=== PATIENT | female | born 1995 | race Two or more races ===

== ENCOUNTER 2020-02-15 15:25 | Emergency (ER) | payer OTHER ==
[~2020-02-15] VITALS: Ht 162.6 cm; Wt 108.9 kg
[2020-02-15 15:37] VITALS: BP 162/78
[2020-02-15] MEDS ORDERED: DIAZEPAM 5 MG TAB PO ONE (16:00)
[2020-02-15] MEDS ORDERED: KETOROLAC 30 MG/ML VIAL IM ONE (16:00)
[2020-02-15 16:51] LABS: BASOPHILS # (AUTO) 0.1 K/uL (0.00-0.22); BASOPHILS % (AUTO) 0.4 % (0.0-2.0); EOSINOPHILS # (AUTO) 0.2 K/uL (0-0.4); EOSINOPHILS % (AUTO) 1.9 % (0.0-4.0); LYMPHOCYTES # (AUTO) 1.8 K/uL (2.5-16.5); LYMPHOCYTES % (AUTO) 15.4 % (20.5-51.1); MEAN CORPUSCULAR HEMOGLOBIN 18 pg (27-31); MEAN CORPUSCULAR HGB CONC 30 g/dL (33-37); MEAN CORPUSCULAR VOLUME 59.3 fL (80-94); MONOCYTES # (AUTO) 0.9 K/uL (0.8-1.0); MONOCYTES % (AUTO) 7.4 % (1.7-9.3); NEUTROPHILS # (AUTO) 8.7 K/uL (1.8-7.7); NEUTROPHILS % (AUTO) 74.9 % (42.2-75.2); PLATELET COUNT (AUTO) 517 K/uL (140-450); RED BLOOD CELL COUNT(AUTO) 4.55 MIL/uL (4.20-5.40); RED CELL DISTRIBUTION WIDTH 20.3 % (11.6-13.7); WHITE BLOOD COUNT (AUTO) 11.7 K/uL (4.8-10.8)
[2020-02-15 17:11] LABS: ALBUMIN 3.3 g/dL (3.4-5.0); ANION GAP 13.5 (8-16); CARBON DIOXIDE 26.5 mmol/L (21-32); CREATININE 1.1 mg/dL (0.6-1.3); TOTAL BILIRUBIN 0.2 mg/dL (0.0-1.0)
[2020-02-15 17:47] LABS: APPEARANCE,URINE CLOUDY (CLEAR); BILIRUBIN,URINE 1+ (NEGATIVE); BLOOD, URINE 2+ (NEGATIVE); COLOR,URINE ORANGE (YELLOW); LEUKOCYTE ESTERASE ,URINE NEGATIVE (NEGATIVE); NITRITE, URINE POSITIVE (NEGATIVE); UGLUCOSE NEGATIVE (NEGATIVE)
[2020-02-15 17:59] LABS: RBC,URINE NONE SEEN /HPF (0-5); URINE AMORPHOUS URATE 4+ /HPF (None Seen); WBC,URINE NONE SEEN /HPF (0-5)
[2020-02-15] MEDS ORDERED: MORPHINE SULFATE 4 MG/ML SYR IM ONE (18:15)
[2020-02-15 18:47] VITALS: BP 157/71
== END 2020-02-15 18:47 | disposition home or self-care (01) ==
LOC: MED 15:25
DX: N20.0 Calculus of kidney (principal); D64.89 Other specified anemias
CPT/HCPCS: 36415; 74176; 76770; 80053; 81001; 81025; 85025; 96374; 96375; 99284; J1885; J2270; Q0092

== ENCOUNTER 2020-03-14 17:34 | Emergency (ER) | payer OTHER ==
[~2020-03-14] VITALS: Ht 162.6 cm; Wt 108.9 kg
[2020-03-14 17:43] VITALS: BP 153/89
--- NOTE | 2020-03-14 17:59 | NUR ---
24 Y/O FEMALE FROM HOME C/O LOWER ABD PAIN RADIATING TO BACK WITH INTERMITTENT VAGINAL BLEEDING X 2 WKS. PT STATES SHE STARTED NEW CONTROL 1.5 MONTHS AGO. STATES DYSURIA AND VAGINAL DISCHARGE. DENIES N/V/D. ABD SOFT, ROUND, AND TENDER TO PALP. RR EVEN AND UNLABORED. POSITIONED FOR COMFORT. VSS MEDHX: BRAIN TUMOR
--- NOTE | 2020-03-14 18:00 | NUR ---
COSME RAMOS AT BEDSIDE EXAMINING PT
--- NOTE | 2020-03-14 18:16 | NUR ---
20G IV PLACED TO PT RT FOREARM, BLOOD DRAWN AT THIS TIME
[2020-03-14 18:18] LABS: BASOPHILS # (AUTO) 0.1 K/uL (0.00-0.22); BASOPHILS % (AUTO) 0.8 % (0.0-2.0); EOSINOPHILS # (AUTO) 0.3 K/uL (0-0.4); EOSINOPHILS % (AUTO) 2.3 % (0.0-4.0); HEMATOCRIT 31.1 % (36-48); HEMOGLOBIN 9.1 g/dL (12.0-16.0); LYMPHOCYTES # (AUTO) 2.6 K/uL (2.5-16.5); LYMPHOCYTES % (AUTO) 19.5 % (20.5-51.1); MEAN CORPUSCULAR HEMOGLOBIN 18 pg (27-31); MEAN CORPUSCULAR HGB CONC 29 g/dL (33-37); MEAN CORPUSCULAR VOLUME 59.8 fL (80-94); MONOCYTES # (AUTO) 0.8 K/uL (0.8-1.0); MONOCYTES % (AUTO) 5.8 % (1.7-9.3); NEUTROPHILS # (AUTO) 9.5 K/uL (1.8-7.7); NEUTROPHILS % (AUTO) 71.6 % (42.2-75.2); PLATELET COUNT (AUTO) 579 K/uL (140-450); RED CELL DISTRIBUTION WIDTH 20.6 % (11.6-13.7); WHITE BLOOD COUNT (AUTO) 13.2 K/uL (4.8-10.8)
[2020-03-14 18:42] LABS: ALBUMIN 3.5 g/dL (3.4-5.0); ANION GAP 14.4 (8-16); CARBON DIOXIDE 25.2 mmol/L (21-32); CREATININE 0.8 mg/dL (0.6-1.3); POTASSIUM 3.6 mmol/L (3.5-5.1); TOTAL BILIRUBIN 0.2 mg/dL (0.0-1.0)
[2020-03-14] MEDS: KETOROLAC 15 MG/ML VIAL IVP SCH (19:00)
--- NOTE | 2020-03-14 19:11 | NUR ---
REPORT GIVEN TO CARYN LIN. TRANSFER OF CARE AT THIS TIME
[2020-03-14] MEDS: KETOROLAC 30 MG/ML VIAL IM ONE (19:38)
--- NOTE | 2020-03-14 20:39 | NUR ---
Patient discharged BY DR. HICKMAN with v/s stable. Written and verbal after care instructions given and explained BY DR. HICKMAN. Patient alert, oriented and verbalized understanding of instructions. Ambulatory with steady gait. All questions addressed prior to discharge BY DR. HICKMAN. ID band removed. Patient advised to follow up with PMD. Rx of PROVERA given. Patient educated on indication of medication including possible reaction and side effects. Opportunity to ask questions provided and answered.
[2020-03-14 21:03] LABS: APPEARANCE,URINE CLOUDY (CLEAR); BILIRUBIN,URINE 1+ (NEGATIVE); BLOOD, URINE 3+ (NEGATIVE); COLOR,URINE ORANGE (YELLOW); LEUKOCYTE ESTERASE ,URINE TRACE (NEGATIVE); NITRITE, URINE NEGATIVE (NEGATIVE); UGLUCOSE NEGATIVE (NEGATIVE)
[2020-03-14 21:41] LABS: RBC,URINE TOO NUMEROUS TO COUN /HPF (0-5)
== END 2020-03-14 20:39 | disposition home or self-care (01) ==
LOC: MED 17:34
DX: N93.8 Other specified abnormal uterine and vaginal bleeding (principal); N94.6 Dysmenorrhea, unspecified; R03.0 Elevated blood-pressure reading, without diagnosis of hypertension
CPT/HCPCS: 36415; 76856; 80053; 81001; 81025; 83690; 85025; 87086; 87210; 96372; 99284; J1885; Q0092

== ENCOUNTER 2020-11-03 11:16 | Emergency (ER) | payer OTHER ==
[~2020-11-03] VITALS: Ht 162.6 cm; Wt 106.6 kg
[2020-11-03 11:26] VITALS: BP 159/98
[2020-11-03] MEDS ORDERED: DEXAMETHASONE 4 MG/ML VIAL PO ONE (13:15)
[2020-11-03 14:33] VITALS: BP 123/65
== END 2020-11-03 14:30 | disposition home or self-care (01) ==
LOC: MED 11:16
DX: J03.90 Acute tonsillitis, unspecified (principal)
CPT/HCPCS: 99283; J1100

== ENCOUNTER 2020-11-15 18:53 | Emergency (ER) | payer OTHER ==
[~2020-11-15] VITALS: Ht 162.6 cm; Wt 106.6 kg
[2020-11-15 19:03] VITALS: BP 153/90
[2020-11-15] MEDS ORDERED: NACL 0.9% 1,000 ML IV ONE (19:50)
[2020-11-15] MEDS ORDERED: CLINDAMYCIN 600 MG in DEXTROSE 5% 50 ML IV ONE (19:50)
[2020-11-15] MEDS ORDERED: DEXAMETHASONE 10 MG/ML VIAL IVP ONE (19:50)
[2020-11-15 20:22] LABS: BASOPHILS # (AUTO) 0.1 K/uL (0.00-0.22); BASOPHILS % (AUTO) 0.5 % (0.0-2.0); EOSINOPHILS # (AUTO) 0.4 K/uL (0-0.4); EOSINOPHILS % (AUTO) 2.8 % (0.0-4.0); HEMATOCRIT 32.9 % (36-48); HEMOGLOBIN 9.8 g/dL (12.0-16.0); LYMPHOCYTES # (AUTO) 2.7 K/uL (2.5-16.5); LYMPHOCYTES % (AUTO) 16.9 % (20.5-51.1); MEAN CORPUSCULAR HEMOGLOBIN 18 pg (27-31); MEAN CORPUSCULAR HGB CONC 30 g/dL (33-37); MEAN CORPUSCULAR VOLUME 61.6 fL (80-94); MONOCYTES # (AUTO) 0.9 K/uL (0.8-1.0); MONOCYTES % (AUTO) 5.6 % (1.7-9.3); NEUTROPHILS # (AUTO) 11.7 K/uL (1.8-7.7); NEUTROPHILS % (AUTO) 74.2 % (42.2-75.2); PLATELET COUNT (AUTO) 500 K/uL (140-450); RED BLOOD CELL COUNT(AUTO) 5.33 MIL/uL (4.20-5.40); RED CELL DISTRIBUTION WIDTH 20.1 % (11.6-13.7); WHITE BLOOD COUNT (AUTO) 15.7 K/uL (4.8-10.8)
[2020-11-15] MEDS ORDERED: MORPHINE SULFATE 4 MG/ML SYR IVP ONE (20:30)
[2020-11-15] MEDS ORDERED: ONDANSETRON 4 MG/2 ML VIAL IVP ONE (20:30)
[2020-11-15] MEDS ORDERED: diphenhydrAMINE 50 MG/ML VIAL ONE (20:45)
[2020-11-15] MEDS ORDERED: EPINEPHrine PFS 0.1 MG/ML SYR IVP ONE (20:45)
[2020-11-15 20:50] LABS: ALBUMIN 3.3 g/dL (3.4-5.0); CARBON DIOXIDE 26.8 mmol/L (21-32); CREATININE 0.7 mg/dL (0.6-1.3); POTASSIUM 3.8 mmol/L (3.5-5.1); TOTAL BILIRUBIN 0.2 mg/dL (0.0-1.0)
[2020-11-15] MEDS ORDERED: diphenhydrAMINE 50 MG/ML VIAL IVP ONE (20:50)
[2020-11-15] MEDS ORDERED: CLINDAMYCIN 600 MG/4 ML VIAL ONE (20:56)
[2020-11-15] MEDS ORDERED: CLIN-178 PO (23:37)
[2020-11-15] MEDS ORDERED: IBUP-2213 PO (23:37)
[2020-11-16 00:15] VITALS: BP 141/83
== END 2020-11-16 00:15 | disposition home or self-care (01) ==
LOC: MED 18:53
DX: J03.90 Acute tonsillitis, unspecified (principal); D72.829 Elevated white blood cell count, unspecified; D50.9 Iron deficiency anemia, unspecified; D47.3 Essential (hemorrhagic) thrombocythemia
CPT/HCPCS: 36415; 70491; 80053; 84702; 85025; 93005; 96365; 96375; 99285; J1100; J1200; J2270; J2405; J3490; Q9967; J0171

== ENCOUNTER 2020-12-03 02:56 | Emergency (ER) | payer OTHER ==
[~2020-12-03] VITALS: Ht 162.6 cm; Wt 108.9 kg
[~2020-12-03 02:56] MED LIST: CLIN-178 PO; IBUP-2213 PO
[2020-12-03 03:11] VITALS: BP 143/76
[2020-12-03] MEDS ORDERED: predniSONE 20 MG TAB PO ONE (03:35)
[2020-12-03] MEDS ORDERED: PRED20TA5 PO (03:46)
[2020-12-03] MEDS ORDERED: ACET-2619 PO (03:46)
[2020-12-03 04:00] VITALS: BP 143/76
== END 2020-12-03 04:02 | disposition home or self-care (01) ==
LOC: MED 02:56
DX: J35.01 Chronic tonsillitis (principal); Z79.899 Other long term (current) drug therapy
CPT/HCPCS: 99283; J7512

== ENCOUNTER 2021-04-13 22:33 | Emergency (ER) | payer OTHER ==
[~2021-04-13] VITALS: Ht 162.6 cm; Wt 108.4 kg
[~2021-04-13 22:33] MED LIST changes: +ACET-2619 PO; +PRED20TA5 PO
[2021-04-13 22:54] VITALS: BP 143/87
--- NOTE | 2021-04-13 23:55 | NUR ---
PATIENT LEFT WITHOUT BEING SEEN BY DR. DEL CASTILLO. NO FURTHER CARE PROVIDED FOR PATIENT.
--- NOTE | 2021-04-14 00:03 | NUR ---
CALLED FOR THE SECOND TIME , NO RESPONSE
--- NOTE | 2021-04-14 00:12 | NUR ---
CALLED FOR THE THIRD TIME, NO RESPONSE
== END 2021-04-13 23:55 | disposition left against medical advice (07) ==
LOC: MED 22:33
DX: R00.2 Palpitations (principal); Z53.21 Procedure and treatment not carried out due to patient leaving prior to being seen by health care provider

== ENCOUNTER 2021-06-02 17:09 | Emergency (ER) | payer OTHER ==
[~2021-06-02] VITALS: Ht 162.6 cm; Wt 105.7 kg
[~2021-06-02 17:09] MED LIST changes: -CLIN-178 PO; +CLIN300C52 PO
[2021-06-02 17:33] VITALS: BP 158/93
--- NOTE | 2021-06-02 17:38 | NUR ---
PT SENT TO LOBBY
[2021-06-02 19:59] LABS: HEMATOCRIT 35.8 % (36-48); HEMOGLOBIN 11.2 g/dL (12.0-16.0); MEAN CORPUSCULAR HEMOGLOBIN 22 pg (27-31); MEAN CORPUSCULAR HGB CONC 31 g/dL (33-37); MEAN CORPUSCULAR VOLUME 69.6 fL (80-94); PLATELET COUNT (AUTO) 518 K/uL (140-450); RED BLOOD CELL COUNT(AUTO) 5.15 MIL/uL (4.20-5.40); RED CELL DISTRIBUTION WIDTH 22.3 % (11.6-13.7)
[2021-06-02 20:08] LABS: WHITE BLOOD COUNT (AUTO) 29.8 K/uL (4.8-10.8)
--- NOTE | 2021-06-02 20:10 | NUR ---
PATIENT BIB SELF FOR C/O UPPER ABDOMINAL PAIN RADIATING TO BILATERAL FLANK. PATIENT STATES HAD X 1 EPISODE OF N/V AT 3PM. PATIENT DENIES BEING ABLE TO WEAT OR DRINK ANYTHING SINCE THIS MORNING. PATIENT STATES OTC MEDICATION UNABLE TO RELIVE PAIN. SEE COMEPLTE ASSESSMENT FOR FUTHER DETAILS. MEDHX: ANEMIA, KIDNEY STONES. NKA
[2021-06-02] MEDS ORDERED: NACL 0.9% 1,000 ML IV ONE (20:15)
[2021-06-02] MEDS ORDERED: MORPHINE SULFATE 4 MG/ML SYR IVP ONE (20:15)
--- NOTE | 2021-06-02 20:15 | NUR ---
TO ER BED 4
[2021-06-02 20:20] LABS: APPEARANCE,URINE CLOUDY (CLEAR); BILIRUBIN,URINE 1+ (NEGATIVE); BLOOD, URINE 2+ (NEGATIVE); COLOR,URINE ORANGE (YELLOW); LEUKOCYTE ESTERASE ,URINE 2+ (NEGATIVE); NITRITE, URINE POSITIVE (NEGATIVE); UGLUCOSE NEGATIVE (NEGATIVE)
[2021-06-02 20:25] LABS: ALBUMIN 3.6 g/dL (3.4-5.0); ANION GAP 15.5 (8-16); CARBON DIOXIDE 23.1 mmol/L (21-32); CREATININE 0.9 mg/dL (0.6-1.3); POTASSIUM 3.6 mmol/L (3.5-5.1); TOTAL BILIRUBIN 0.9 mg/dL (0.0-1.0)
[2021-06-02 20:27] LABS: LYMPHOCYTES % (MANUAL) 4 % (20-46); MONOCYTES % (MANUAL) 5 % (5-12)
--- NOTE | 2021-06-02 21:04 | NUR ---
PATIENT TAKEN TO CT VIA W/C.
[2021-06-02 21:38] LABS: CALCIUM OXALATE CRYSTALS,UR 0-10 /HPF (None Seen); URINE AMORPHOUS URATE 2+ /HPF (None Seen)
[2021-06-02] MEDS ORDERED: CEPH250C16 PO (21:54)
[2021-06-02] MEDS ORDERED: ONDA4TAB PO (21:54)
[2021-06-02] MEDS ORDERED: LOPE-289 PO (21:54)
--- NOTE | 2021-06-02 23:08 | NUR ---
IV removed, catheter intact and site benign. Applied folded 4x4 gauze and tape to stop bleeding.
--- NOTE | 2021-06-02 23:10 | NUR ---
Patient discharged with v/s stable. Written and verbal after care instructions given and explained. Patient alert, oriented and verbalized understanding of instructions. Ambulatory with steady gait. All questions addressed prior to discharge. ID band removed. Patient advised to follow up with PMD. Rx of ZOFRAN, IMMODIUM, ROCEPHIN given. Patient educated on indication of medication including possible reaction and side effects. Opportunity to ask questions provided and answered.
[2021-06-02 23:20] VITALS: BP 128/78
== END 2021-06-02 23:20 | disposition home or self-care (01) ==
LOC: MED 17:09
DX: R10.10 Upper abdominal pain, unspecified (principal); Z20.822 Contact with and (suspected) exposure to COVID-19; R11.2 Nausea with vomiting, unspecified; R19.7 Diarrhea, unspecified; Z79.899 Other long term (current) drug therapy
CPT/HCPCS: 36415; 74176; 80053; 81001; 81025; 83605; 83690; 84702; 85025; 87040; 87086; 87426; 96361; 96374; 99284; J2270; J7030

== ENCOUNTER 2022-01-03 17:08 | Emergency (ER) | payer OTHER ==
[~2022-01-03] VITALS: Ht 162.6 cm; Wt 107.5 kg
[~2022-01-03 17:08] MED LIST changes: +CEPH250C16 PO; +LOPE-289 PO; +ONDA4TAB PO
[2022-01-03 17:15] VITALS: BP 150/84
--- NOTE | 2022-01-03 17:18 | NUR ---
PT TO WAIT IN LOBBY.
--- NOTE | 2022-01-03 17:36 | NUR ---
COSME GUILLEN WITH PT IN TRIAGE ROOM FOR FURTHER EVALUATION.
--- NOTE | 2022-01-03 17:36 | NUR ---
26 Y/O FEMALE C/O ANXIETY X1DAY. PT STATES SHE FEEL SOB, SPO2 100% ON RA. PT STATES SHE RECENTLY RECEIVED SOME NEWS. DENIES FEVER/CHILLS. DENIES N/V/D. PMH: ANXIETY NKA
[2022-01-03] MEDS ORDERED: CEPH-588 PO (19:03)
--- NOTE | 2022-01-03 19:09 | NUR ---
Patient discharged with v/s stable. Written and verbal after care instructions ABOUT URINARY FREQUENCY given and explained. Patient alert, oriented and verbalized understanding of instructions. Ambulatory with steady gait. All questions addressed prior to discharge. ID band removed. Patient advised to follow up with PMD. Rx of KELFEX given. Patient educated on indication of medication including possible reaction and side effects. Opportunity to ask questions provided and answered.
== END 2022-01-03 19:09 | disposition home or self-care (01) ==
LOC: MED 17:08
DX: F41.9 Anxiety disorder, unspecified (principal); N39.0 Urinary tract infection, site not specified; R03.0 Elevated blood-pressure reading, without diagnosis of hypertension; Z79.899 Other long term (current) drug therapy
CPT/HCPCS: 36415; 81002; 84702; 99283

== ENCOUNTER 2022-12-18 15:17 | Emergency (ER) | payer OTHER ==
[~2022-12-18] VITALS: Ht 162.6 cm; Wt 104.8 kg
[~2022-12-18 15:17] MED LIST changes: +CEPH-588 PO
[2022-12-18 15:36] VITALS: BP 139/95
--- NOTE | 2022-12-18 16:00 | NUR ---
C/O COLD S/S, BILATERAL EARACHE, SORE THROAT, HEADACHE, BODY ACHES, CHILLS, SUBJECTIVE FEVER, COUGH, NASAL CONGESTION X3DAYS NKA PMH: DENIES
[2022-12-18] MEDS ORDERED: BPM/118S31 PO (16:30)
[2022-12-18] MEDS ORDERED: ALBU0.0912 IH (16:30)
--- NOTE | 2022-12-18 16:40 | NUR ---
YOU AND EVIE WALKED TO LAB
--- NOTE | 2022-12-18 16:43 | NUR ---
Patient discharged with v/s stable. Written and verbal after care instructions ABOUT VIRAL ILLNESS given and explained. Patient alert, oriented and verbalized understanding of instructions. Ambulatory with steady gait. All questions addressed prior to discharge. ID band removed. Patient advised to follow up with PMD. Rx of ALBUTEROL, BROMFED DM given. Patient educated on indication of medication including possible reaction and side effects. Opportunity to ask questions provided and answered.
== END 2022-12-18 16:43 | disposition home or self-care (01) ==
LOC: MED 15:17
DX: J06.9 Acute upper respiratory infection, unspecified (principal); Z20.822 Contact with and (suspected) exposure to COVID-19; Z79.899 Other long term (current) drug therapy
CPT/HCPCS: 99283

== ENCOUNTER 2023-06-11 10:43 | Emergency (ER) | payer OTHER ==
[~2023-06-11] VITALS: Ht 162.6 cm; Wt 105.9 kg
[~2023-06-11 10:43] MED LIST changes: +ALBU0.0912 IH; +BROM118S70 PO
[2023-06-11 11:18] VITALS: BP 136/98; PULSE 54; RESP 19; TEMP 98; O2SAT 98
[2023-06-11] MEDS ORDERED: ALUMINUM HYD/MAG/SIMETHICONE 30 ML, DICYCLOMINE HCL LIQUID 20 MG, LIDOCAINE VISCOUS 2% ... PO ONE ×3 (12:45)
[2023-06-11] MEDS ORDERED: ALUMINUM HYD/MAG/SIMETHICONE 30 ML UDC ONE (13:09)
[2023-06-11] MEDS ORDERED: DICYCLOMINE HCL LIQUID 10 MG/5 ML UDC ONE (13:09)
[2023-06-11 13:39] LABS: BASOPHILS # (AUTO) 0.1 K/uL (0.00-0.22); BASOPHILS % (AUTO) 0.5 % (0.0-2.0); EOSINOPHILS # (AUTO) 0.2 K/uL (0-0.4); EOSINOPHILS % (AUTO) 2.2 % (0.0-4.0); HEMATOCRIT 40.2 % (36-48); HEMOGLOBIN 13.1 g/dL (12.0-16.0); LYMPHOCYTES % (AUTO) 26.9 % (20.5-51.1); MEAN CORPUSCULAR HEMOGLOBIN 26 pg (27-31); MEAN CORPUSCULAR HGB CONC 33 g/dL (33-37); MEAN CORPUSCULAR VOLUME 78.7 fL (80-94); MONOCYTES # (AUTO) 0.8 K/uL (0.8-1.0); MONOCYTES % (AUTO) 7.3 % (1.7-9.3); NEUTROPHILS % (AUTO) 63.1 % (42.2-75.2); PLATELET COUNT (AUTO) 408 K/uL (140-450); RED CELL DISTRIBUTION WIDTH 17.7 % (11.6-13.7); WHITE BLOOD COUNT (AUTO) 11.1 K/uL (4.8-10.8)
[2023-06-11 13:56] LABS: ALBUMIN 3.6 g/dL (3.4-5.0); CALCIUM 8.7 mg/dL (8.5-10.1); CARBON DIOXIDE 27.5 mmol/L (21-32); CREATININE 0.7 mg/dL (0.6-1.3); POTASSIUM 4.5 mmol/L (3.5-5.1); TOTAL BILIRUBIN 0.3 mg/dL (0.0-1.0); TOTAL PROTEIN, SERUM 7.5 g/dL (6.4-8.2)
[2023-06-11 13:57] LABS: APPEARANCE,URINE CLEAR (CLEAR); BILIRUBIN,URINE NEGATIVE (NEGATIVE); BLOOD, URINE NEGATIVE (NEGATIVE); COLOR,URINE YELLOW (YELLOW); LEUKOCYTE ESTERASE ,URINE TRACE (NEGATIVE); NITRITE, URINE NEGATIVE (NEGATIVE); PROTEIN,URINE NEGATIVE (NEGATIVE); UGLUCOSE NEGATIVE (NEGATIVE); UROBILINOGEN,URINE 0.2 EU/dL (0.2 - 1)
[2023-06-11 14:11] LABS: BACTERIA,URINE OCCASSIONAL /HPF (None Seen); RBC,URINE 0-5 /HPF (0-5); SQUAMOUS EPITHELIAL CELL,UR 0-3 (FEW) /LPF (0-3 (FEW)); WBC,URINE 0-5 /HPF (0-5)
[2023-06-11] MEDS ORDERED: ALUM355S5 PO (14:30)
[2023-06-11 15:14] VITALS: BP 130/89; PULSE 59; RESP 20; TEMP 98; O2SAT 98
== END 2023-06-11 15:14 | disposition home or self-care (01) ==
LOC: MED 10:43
DX: R10.13 Epigastric pain (principal); R30.0 Dysuria; R35.0 Frequency of micturition; Z90.49 Acquired absence of other specified parts of digestive tract; Z79.899 Other long term (current) drug therapy
CPT/HCPCS: 36415; 80053; 81001; 81025; 83690; 85025; 99283

== ENCOUNTER 2023-08-08 12:46 | Emergency (ER) | payer OTHER ==
[~2023-08-08] VITALS: Ht 162.6 cm; Wt 105.2 kg
[~2023-08-08 12:46] MED LIST changes: +ALUM355S5 PO
[2023-08-08 12:54] VITALS: BP 125/93; PULSE 73; RESP 18; TEMP 98.4; O2SAT 99
[2023-08-08] MEDS ORDERED: DICYCLOMINE HCL LIQUID 20 MG, ALUMINUM HYD/MAG/SIMETHICONE 30 ML, LIDOCAINE VISCOUS 2% ... PO ONE ×3 (13:05)
[2023-08-08 13:17] LABS: BASOPHILS % (AUTO) 0.4 % (0.0-2.0); EOSINOPHILS # (AUTO) 0.4 K/uL (0-0.4); EOSINOPHILS % (AUTO) 4.5 % (0.0-4.0); HEMATOCRIT 40.7 % (36-48); HEMOGLOBIN 13.4 g/dL (12.0-16.0); LYMPHOCYTES # (AUTO) 2.5 K/uL (2.5-16.5); LYMPHOCYTES % (AUTO) 28.4 % (20.5-51.1); MEAN CORPUSCULAR HEMOGLOBIN 26 pg (27-31); MEAN CORPUSCULAR HGB CONC 33 g/dL (33-37); MEAN CORPUSCULAR VOLUME 78.8 fL (80-94); MONOCYTES # (AUTO) 0.5 K/uL (0.8-1.0); MONOCYTES % (AUTO) 5.5 % (1.7-9.3); NEUTROPHILS # (AUTO) 5.3 K/uL (1.8-7.7); NEUTROPHILS % (AUTO) 61.2 % (42.2-75.2); PLATELET COUNT (AUTO) 469 K/uL (140-450); RED BLOOD CELL COUNT(AUTO) 5.16 MIL/uL (4.20-5.40); RED CELL DISTRIBUTION WIDTH 16.9 % (11.6-13.7); WHITE BLOOD COUNT (AUTO) 8.7 K/uL (4.8-10.8)
[2023-08-08] MEDS ORDERED: ALUMINUM HYD/MAG/SIMETHICONE 30 ML UDC ONE (13:17)
[2023-08-08] MEDS ORDERED: DICYCLOMINE HCL LIQUID 10 MG/5 ML UDC ONE (13:17)
[2023-08-08 13:40] LABS: ALBUMIN 3.5 g/dL (3.4-5.0); ANION GAP 9.6 (8-16); CALCIUM 8.2 mg/dL (8.5-10.1); CARBON DIOXIDE 28.4 mmol/L (21-32); CREATININE 0.7 mg/dL (0.6-1.3); TOTAL BILIRUBIN 0.3 mg/dL (0.0-1.0); TOTAL PROTEIN, SERUM 7.4 g/dL (6.4-8.2)
[2023-08-08] MEDS ORDERED: OMEP20EC11 PO (13:47)
== END 2023-08-08 13:53 | disposition home or self-care (01) ==
LOC: MED 12:46
DX: R10.13 Epigastric pain (principal); Z20.822 Contact with and (suspected) exposure to COVID-19; R19.7 Diarrhea, unspecified; R03.0 Elevated blood-pressure reading, without diagnosis of hypertension; Z79.899 Other long term (current) drug therapy
CPT/HCPCS: 36415; 80053; 81002; 81025; 83690; 85025; 99283

== ENCOUNTER 2024-02-25 18:22 | Emergency (ER) | payer OTHER ==
[~2024-02-25] VITALS: Ht 162.6 cm; Wt 102.1 kg
[~2024-02-25 18:22] MED LIST changes: -ALUM355S5 PO; +MAG-43 PO; +OMEP20EC11 PO
[2024-02-25 18:35] VITALS: BP 150/91; PULSE 64; RESP 18; TEMP 98.2; O2SAT 100
[2024-02-25 19:47] LABS: BASOPHILS # (AUTO) 0.1 K/uL (0.00-0.22); BASOPHILS % (AUTO) 0.5 % (0.0-2.0); EOSINOPHILS # (AUTO) 0.4 K/uL (0-0.4); EOSINOPHILS % (AUTO) 2.4 % (0.0-4.0); HEMATOCRIT 40.9 % (36-48); HEMOGLOBIN 13.4 g/dL (12.0-16.0); LYMPHOCYTES # (AUTO) 3.3 K/uL (2.5-16.5); LYMPHOCYTES % (AUTO) 22.7 % (20.5-51.1); MEAN CORPUSCULAR HEMOGLOBIN 26 pg (27-31); MEAN CORPUSCULAR HGB CONC 33 g/dL (33-37); MEAN CORPUSCULAR VOLUME 78.8 fL (80-94); MONOCYTES # (AUTO) 0.8 K/uL (0.8-1.0); MONOCYTES % (AUTO) 5.2 % (1.7-9.3); NEUTROPHILS # (AUTO) 10.1 K/uL (1.8-7.7); NEUTROPHILS % (AUTO) 69.2 % (42.2-75.2); PLATELET COUNT (AUTO) 426 K/uL (140-450); RED BLOOD CELL COUNT(AUTO) 5.19 MIL/uL (4.20-5.40); RED CELL DISTRIBUTION WIDTH 16.7 % (11.6-13.7); WHITE BLOOD COUNT (AUTO) 14.7 K/uL (4.8-10.8)
[2024-02-25 20:05] LABS: ANION GAP 12.8 (8-16); CALCIUM 9.4 mg/dL (8.5-10.1); CREATININE 0.6 mg/dL (0.6-1.3); POTASSIUM 3.8 mmol/L (3.5-5.1)
[2024-02-25 21:50] VITALS: BP 137/81; PULSE 78; RESP 16; O2SAT 95
== END 2024-02-25 21:50 | disposition home or self-care (01) ==
LOC: MED 18:22
DX: R07.89 Other chest pain (principal); I10 Essential (primary) hypertension; K21.9 Gastro-esophageal reflux disease without esophagitis; F41.9 Anxiety disorder, unspecified; Z79.1 Long term (current) use of non-steroidal anti-inflammatories (NSAID); Z79.2 Long term (current) use of antibiotics; Z79.899 Other long term (current) drug therapy
CPT/HCPCS: 36415; 71045; 80048; 84484; 85025; 93005; 99285